=== PATIENT | female | born 1950 | race Caucasian/White ===

== ENCOUNTER 2020-01-08 16:26 | Emergency (ER) | payer MEDICARE ==
[~2020-01-08] VITALS: Ht 165.1 cm; Wt 61.0 kg
--- NOTE | 2020-01-08 16:59 | NUR ---
pt w bloody nose more dried blood than liquid but given noseclamp and tissues. pt on blood thinners for afib. as
--- NOTE | 2020-01-08 18:00 | NUR ---
piv est labs sent cxr at bedside. as
[2020-01-08 18:11] LABS: BASOPHILS % (AUTO) 1 % (0-1); EOSINOPHILS % (AUTO) 0 % (1-7); LYMPHOCYTES % (AUTO) 6 % (22-44); MEAN CORPUSCULAR HEMOGLOBIN 22.9 pg (27.0-34.8); MEAN CORPUSCULAR HGB CONC 30.7 g/dL (32.4-35.8); MEAN PLATELET VOLUME 10.3 fL (7.4-10.4); MONOCYTES % (AUTO) 7 % (2-9); NEUTROPHILS % (AUTO) 86 % (42-75); PLATELET COUNT 290 x10^3/uL (130-400); RED BLOOD COUNT 4.45 x10^6/uL (3.82-5.3); RED CELL DISTRIBUTION WIDTH 25.2 % (9.6-15.2)
[2020-01-08 18:13] LABS: ALANINE AMINOTRANSFERASE 41 U/L (12-78); ALBUMIN 3.5 g/dL (3.4-5.0); ANION GAP 5 mmol/L (5-15); C-REACTIVE PROTEIN, QUANT 0.33 mg/dL (0.02-0.49); CALCIUM 8.9 mg/dL (8.5-10.1); CHLORIDE 105 mmol/L (98-107); CREATININE 0.63 mg/dL (0.55-1.02)
[2020-01-08 18:17] LABS: ALKALINE PHOSPHATASE 53 U/L (45-117); BILIRUBIN,TOTAL 0.7 mg/dL (0.2-1.0); TOTAL PROTEIN 6.5 g/dL (6.4-8.2); TROPONIN I < 0.015 ng/mL (0.000-0.045)
[2020-01-08 18:19] LABS: MD MORPH REVIEW ONLY
[2020-01-08] MEDS ORDERED: ALBUTEROL/IPRATROPIUM 2.5MG/0.5MG, 3 ML ONE (18:45)
--- NOTE | 2020-01-08 18:52 | NUR ---
report to harper gudino. as
--- NOTE | 2020-01-08 18:55 | NUR ---
REPORT FROM CELINA HARTMANN ASSUMING CARE OF PT AT THIS TIME
[2020-01-08] MEDS ORDERED: ALBUTEROL/IPRATROPIUM 2.5MG/0.5MG, 3 ML NEB ONE (19:00)
--- NOTE | 2020-01-08 19:12 | NUR ---
NEB TX COMPLETE, PT REQUESTING DINNER TRAY SHE HAS NOT EATEN IN 48HRS. PT DENIES LACK OF ACCESS TO FOOD STATES SHE JUST DIDN'T WANT TO
--- NOTE | 2020-01-08 20:00 | NUR ---
PT PROVIDED WITH SNACKS REQUESTED. PT THANKFUL FOR FOOD AT THIS TIME
[2020-01-08 20:09] LABS: ANISOCYTOSIS 2+; MICROCYTOSIS 1+; POLYCHROMASIA 1+
[2020-01-08 20:10] LABS: OVALOCYTES 1+
[2020-01-08 20:13] LABS: <PLATELET ESTIMATE> ADEQUATE; HYPOCHROMIA 1+; LARGE PLATELETS 1+; SCHISTOCYTES 1+
--- NOTE | 2020-01-08 20:20 | NUR ---
PT SHOUTING "HELP HELP I'M CHOKING" PT O2 SAT STILL 94-98% ON BASELINE O2 AIRWAY CLEAR NO DISTRESSED NOTED. WHILE SHOUTING HR UP TO 130'S PT SHOUTING I WANT TO GO HOME. PT EDUCTAED THAT SHE STILL NEEDS O2 TO GET HOME AND ASKED IF SHE HAS PORTABLE THAT SOMEONE COULD BRING HER. PT STS NOT AN OPTION
[2020-01-08] MEDS ORDERED: METOPROLOL 1 MG/ML, 5ML IVPush ONE (20:30)
[2020-01-08] MEDS ORDERED: METOPROLOL 1 MG/ML, 5ML ONE (20:31)
--- NOTE | 2020-01-08 20:38 | NUR ---
DR SWANN AT BEDSIDE FOR REASSESS AND POC. PER PT TO BE DC HOME AFTER METOPROLOL FOR RATE CONTROL. PT REMAINS ADAMENT THAT SHE WANTS TO GO HOME
[2020-01-08 21:06] VITALS: BP 100/52
--- NOTE | 2020-01-08 21:06 | NUR ---
PT DC REMOVED ALL MONITORING VSS PRIOR TO THIS.
== END 2020-01-08 21:09 | disposition home or self-care (01) ==
LOC: ED 17:24
DX: J44.9 Chronic obstructive pulmonary disease, unspecified (principal); J96.10 Chronic respiratory failure, unspecified whether with hypoxia or hypercapnia; I48.20 Chronic atrial fibrillation, unspecified; R50.9 Fever, unspecified; R05 Cough; I49.3 Ventricular premature depolarization; Z99.81 Dependence on supplemental oxygen; Z87.891 Personal history of nicotine dependence
CPT/HCPCS: 36415; 71045; 80053; 82728; 83605; 83615; 84145; 84484; 85025; 86140; 87040; 87077; 87147; 87186; 93005; 94640; 96374; 99285